=== PATIENT | female | born 1945 | race Caucasian/White ===

== ENCOUNTER 2022-06-15 15:08 | Emergency (ER) | payer MEDICARE, OTHER ==
[~2022-06-15] VITALS: Ht 167.7 cm; Wt 68.0 kg
--- NOTE | 2022-06-15 15:32 | ED General ---
General Chief Complaint: General Problems/Pain Nursing Triage Note: PT TO ROOM FS05 VIA [facility] WITH C/O BLISTERS TO RIGHT FOREARM AND RIGHT UPPER ABD. PT HAS DEMENTIA AND IS UNABLE TO ANSWER QUESTIONS. STATES THAT PT FELL YESTERDAY. STATES HE SEEN PT YESTERDAY AND THERE WERE NO BLISTERS AT THAT TIME. EMS STATES THEY WERE CALLED FOR TRANSPORT BECAUSE THE PT WOULD NOT SIT DOWN IN A W/C. Source of Information: Patient, EMS, Family, [facility] Records Exam Limitations: No Limitations History of Present Illness Date Seen by Provider: Jun 15, 2022 Time Seen by Provider: 15:10 Initial Comments 77-year-old female with past medical history of advanced dementia coming in via EMS from her senior living due to concerns for blistering on her right arm and right side of her abdomen. The patient had a low impact fall yesterday, was found on the carpet in her bedroom. This morning they noted the blistering to her right arm and right side of her abdomen with what appeared to be some scratch serna as well. She has an appointment with Dr. Bloanos tomorrow to be evaluated for this, but her wanted her to be seen today. She is new to this facility as of the past week. She has not had any new medicines, but did increase the dose of her Depakote recently. The senior living reports that they did change the detergent recently as well. The patient denies this being itchy, or painful. Per her , the patient is acting normally. I personally called the senior living and discussed the case with the patient's nurse there as well. Further elements of the history and physical were unable to be obtained from the patient given she is minimally verbal with her dementia. Her believes she has an updated tetanus shot within the past 5 years. Allergies and Home Medications Allergies Coded Allergies: No Known Drug Allergies (Unverified , 06/15/22) Patient Home Medication List Home Medication List Reviewed: Yes Review of Systems Review of Systems Constitutional: No fever EENTM: No nose congestion Respiratory: No wheezing Cardiovascular: No syncope Gastrointestinal: No vomiting Genitourinary: No decreased output Musculoskeletal: no symptoms reported Skin: see HPI Psychiatric/Neurological: Denies Seizure Hematologic/Lymphatic: No Symptoms Reported Immunological/Allergic: no symptoms reported All Other Systems Reviewed Negative Unless Noted: Yes Past Hgyroqx-Tiwkvl-Dlxuev Hx Patient Social History Tobacco Use?: No Smoking Status: Never a Smoker Smokeless Tobacco Frequency: Never a User Use of E-Cig and/or Vaping dev: No Use of E-Cig and/or Vaping Chau: Never a User Substance use?: No Alcohol Use?: No Pt feels they are or have been: No Past Medical History Surgeries: No Physical Exam Vital Signs Vital Signs - First Documented 06/15/22 15:10 Temp 36.4 Pulse 65 Resp 17 B/P (MAP) 125/65 (85) O2 Delivery Room Air Capillary Refill : Less Than 3 Seconds Height, Weight, BMI Height: '" Weight: lbs. oz. kg; 24.00 BMI Method: General Appearance: No Apparent Distress, WD/WN Eyes: Bilateral Eye Normal Inspection HEENT: PERRL/EOMI, Normal ENT Inspection, Pharynx Normal Neck: Full Range of Motion, Normal Inspection, Non Tender, Supple Respiratory: Chest Non Tender, Lungs Clear, Normal Breath Sounds, No Accessory Muscle Use, No Respiratory Distress Cardiovascular: Regular Rate, Rhythm, No Edema, Normal Peripheral Pulses Gastrointestinal: Normal Bowel Sounds, Non Tender, Soft; No Distended, No Guarding Back: Normal Inspection Extremity: Normal Capillary Refill, Normal Inspection, Normal Range of Motion, Non Tender, No Calf Tenderness, No Pedal Edema Neurologic/Psychiatric: Alert, No Motor/Sensory Deficits, Other (Moving all extremities equally) Skin: Normal Color, Warm/Dry, Other (Erythema with blistering to the right bicep area with what appears to be linear scratch excoriations, smaller area to the right side of the abdomen with smaller amount of blistering, Nikolsky negative, no mucous membrane involvement) Lymphatic: No Adenopathy Progress/Results/Core Measures Suspected Sepsis SIRS Temperature: Pulse: 65 Respiratory Rate: 17 Blood Pressure 125 /65 Mean: 85 Results/Orders Vital Signs/I&O 06/15/22 15:10 Temp 36.4 Pulse 65 Resp 17 B/P (MAP) 125/65 (85) O2 Delivery Room Air Capillary Refill : Less Than 3 Seconds Blood Pressure Mean: 85 Progress Note : Progress Note 77-year-old female with above history coming in due to blistering to her right arm and right side of her abdomen. ABCs were intact and vitals were stable on presentation. Differential includes burn versus less likely infection given the appearance versus less likely allergic in nature given it is not systemic and seems very localized to one area. I would imagine the new detergent if that is the issue, would cause more widespread problems on her skin. It was very rapid in onset, does not seem to be spreading, no fever, and given its on her arm and the right side of her abdomen, makes infection very unlikely. To me it looks like a friction burn, and this fits the story where she was laying down on what the describes as rough carpet. Pictures were taken by him, and I want her to have a follow-up appointment with her doctor tomorrow for repeat evaluation to see if it spreading. If it is spreading, infection more likely, and then at that point would recommend antibiotics. At this point would just recommend wound care. We placed nonadherent dressings on the wound. I believe she is stable for discharge with outpatient follow-up. states she is at her baseline. No other signs of trauma. She was sent home with strict return precautions. Departure Impression Primary Impression: Blistered skin Disposition: HOME, SELF-CARE Condition: Stable Departure-Patient Inst. Decision time for Depature: 15:35 Patient Instructions: Minor Skin [place] ED Add. Discharge Instructions: This appears to be a friction burn, could have been from the carpet yesterday when she was on the ground. The main thing is to just keep the wound clean. Put nonadherent dressings on it. The blisters will pop on their own. If redness starts spreading more around her arm or she develops fever call her doctor as she may need to be on antibiotics at that point. Watch the rest of her skin to see if anything else pops up as well. Follow-up with Dr. Bolanos tomorrow SANDHYA LOCKHART MD Jun 15, 2022 15:32
[2022-06-15 15:37] VITALS: BP 134/73
== END 2022-06-15 15:37 | disposition home or self-care (01) ==
LOC: ER FS 15:11
DX: S40.821A Blister (nonthermal) of right upper arm, initial encounter (principal); S30.821A Blister (nonthermal) of abdominal wall, initial encounter; W19.XXXA Unspecified fall, initial encounter
CPT/HCPCS: 99283

== ENCOUNTER 2022-07-07 10:47 | Emergency (ER) | payer MEDICARE ==
--- NOTE | 2022-07-07 11:21 | Diagnostic Imaging Report ---
INDICATION: Cough, SOA. Altered mental status. TECHNIQUE: Single view chest, 11:04 a.m. CORRELATION STUDY: None. FINDINGS: Heart size is borderline enlarged. Tortuous course of the thoracic aorta. Pulmonary vasculature is overall within normal limits. Bibasilar pulmonary opacities favoring edema versus infiltrate. Some irregular gas in the medial left lung base. However, no evidence for pneumothorax. IMPRESSION: 1. Bibasilar areas of atelectasis and/or infiltrate, left greater than right. Dictated by: Dictated on workstation # [id number]
[2022-07-07 11:27] LABS: BILIRUBIN,URINE NEGATIVE (NEGATIVE); CLARITY,URINE SL CLOUDY; COLOR,URINE YELLOW; GLUCOSE, URINE (UA) NEGATIVE (NEGATIVE); KETONES,URINE TRACE (NEGATIVE); LEUKOCYTE ESTERASE ,URINE NEGATIVE (NEGATIVE); NITRITE,URINE NEGATIVE (NEGATIVE); PROTEIN,URINE NEGATIVE (NEGATIVE)
--- NOTE | 2022-07-07 11:41 | Diagnostic Imaging Report ---
PROCEDURE: CT head without contrast. TECHNIQUE: Multiple contiguous axial images were obtained through the brain without the use of intravenous contrast. Auto Exposure Controls were utilized during the CT exam to meet ALARA standards for radiation dose reduction. INDICATION: Altered mental status. COMPARISON: None. FINDINGS: The ventricles and cortical sulci are prominent. This is thought to be due to generalized parenchymal volume loss. Ventricular prominence does appear somewhat asymmetric to the sulcal prominence, which can be seen with normal pressure hydrocephalus. There is no midline shift or mass effect. No acute intracranial hemorrhage is seen. There is no CT evidence of acute territorial ischemia. The calvarium appears intact. There is marked hyperostosis frontalis. Visualized paranasal sinuses are clear. IMPRESSION: 1. No acute intracranial hemorrhage or CT evidence of acute territorial ischemia. 2. Generalized parenchymal volume loss. Ventricular prominence appears somewhat disproportionate, and normal pressure hydrocephalus is not excluded. Dictated by: Dictated on workstation # [id number]
[2022-07-07 11:46] LABS: HEMOGLOBIN 12.9 g/dL (11.5-16.0); MEAN CORPUSCULAR HEMOGLOBIN 30 pg (25-34); WHITE BLOOD COUNT 8.2 10^3/uL (4.3-11.0)
[2022-07-07 11:47] LABS: BASOPHILS % (AUTO) 0 % (0-10); EOSINOPHILS % (AUTO) 0 % (0-10); HEMATOCRIT 38 % (35-52); LYMPHOCYTES % (AUTO) 12 % (12-44); MEAN CORPUSCULAR HGB CONC 34 g/dL (32-36); MEAN CORPUSCULAR VOLUME 89 fL (80-99); MEAN PLATELET VOLUME 10.9 fL (9.0-12.2); MONOCYTES # (AUTO) 0.4 X 10^3 (0.0-1.0); MONOCYTES % (AUTO) 5 % (0-12); NEUTROPHILS # (AUTO) 6.8 X 10^3 (1.8-7.8); NEUTROPHILS % (AUTO) 82 % (42-75); PLATELET COUNT 127 10^3/uL (130-400)
--- NOTE | 2022-07-07 11:51 | ED General ---
General Chief Complaint: Cardiac/General Problems Stated Complaint: AMS; HYPERTENSION Nursing Triage Note: PT ARRIVED BY EMS FROM [facility] WITH CHIEF COMPLAINT OF HYPERTENSION AND AMS. PT HAS HISTORY OF ALZHEIMER'S. AFTER EMS PICKED PATIENT UP AND PUT ON STRETCHER, THE PATIENT STARTED TO WAKE UP. EMS STARTED IV IN RIGHT WRIST 20 GAUGE. EMS STATED THE [facility] DID NOT GIVE THEM A MED LIST. ON ARRIVAL PT WAS DROWSY AND WILL NOT WAKE UP FROM SLEEPING UNLESS MOVING HER, PUTTING BP CUFF ON, OR STARTING IV (TO PAIN). PT WAS HOOKED UP TO THE MONITOR, VS COMPLETED, IV WAS SECURED WITH COBAN, SECOND IV ATTEMPED (GOT BLOOD BUT DC), MULTANI CATH WAS INSERTED WITH URINE OBTAINED. REPORT WAS GIVEN TO PROVIDER. Source of Information: Patient, EMS, Care Home Records Exam Limitations: Other (Dementia) History of Present Illness Date Seen by Provider: Jul 07, 2022 Time Seen by Provider: 10:48 Initial Comments This is 77-year-old woman with dementia presents to the emergency room [facility] where she was witnessed to have altered mental status. Normally she is alert and active but she was noted to be slumping at the table this morning and then again slumping and drifting off while in the shower. Blood sugar was 132 for EMS and vital signs were stable. EMS reported improving mental status since their initial evaluation. I later obtained history from family and discovered that she has had long-term severe dementia and is nonverbal. She also has history of seizures and is on medication for treatment. I eventually obtained the MAR and discovered she is on Depakote. states her current behavior is reminiscent of postictal state. No seizure activity was reported by [facility] staff. Allergies and Home Medications Allergies Coded Allergies: No Known Drug Allergies (Unverified , 06/15/22) Patient Home Medication List Home Medication List Reviewed: Yes Review of Systems Review of Systems Constitutional: no symptoms reported EENTM: no symptoms reported Respiratory: no symptoms reported Cardiovascular: no symptoms reported Gastrointestinal: no symptoms reported Genitourinary: no symptoms reported : No Musculoskeletal: no symptoms reported Skin: other (Rash on right forearm) Psychiatric/Neurological: See HPI Hematologic/Lymphatic: No Symptoms Reported Past Zhfacsq-Pmxxid-Whpljp Hx Patient Social History Tobacco Use?: No Smoking Status: Unknown if Ever Smoked Smokeless Tobacco Frequency: Unknown if Ever Used Use of E-Cig and/or Vaping Chau: Unknown if Ever Used Substance use?: Unable to obtain Alcohol Use?: Unable to obtain Pt feels they are or have been: Unable to obtain Past Medical History Surgeries: No Respiratory: No Cardiac: No Neurological: Yes Dementia, Seizure Disorder Physical Exam Vital Signs Vital Signs - First Documented 07/07/22 11:22 Temp 36.2 Pulse 77 Resp 18 B/P (MAP) 133/65 (87) Pulse Ox 97 O2 Delivery Room Air Capillary Refill : Less Than 3 Seconds Height, Weight, BMI Height: '" Weight: lbs. oz. kg; 24.00 BMI Method: General Appearance: No Apparent Distress, WD/WN, Other (Hypersomnolent) HEENT: PERRL/EOMI, Normal ENT Inspection Neck: Normal Inspection Respiratory: Lungs Clear, Normal Breath Sounds, No Accessory Muscle Use Cardiovascular: Regular Rate, Rhythm, No Edema, No Murmur Gastrointestinal: Non Tender, Soft Extremity: Normal Inspection, No Pedal Edema Neurologic/Psychiatric: No Motor/Sensory Deficits (Moves all 4 extremities and responds to pressure and touch), Other (Sometimes opens eyes and responds to voice. Patient is nonverbal at baseline. Level of alertness gradually progressed to near baseline throughout the course of ER stay. She was smiling at staff and family and active prior to discharge) Skin: Normal Color, Warm/Dry, Other (Healing blisters and erythematous rash on the right arm) Progress/Results/Core Measures Suspected Sepsis SIRS Temperature: Pulse: 77 Respiratory Rate: 18 Laboratory Tests 07/07/22 11:15: White Blood Count 8.2 Blood Pressure 133 /65 Mean: 87 Laboratory Tests 07/07/22 11:15: Creatinine 0.87, Platelet Count 127L, Total Bilirubin 0.4 Results/Orders Lab Results Laboratory Tests Test 07/07/22 11:15 07/07/22 11:20 07/07/22 13:00 Range/Units White Blood Count 8.2 4.3-11.0 10^3/uL Red Blood Count 4.23 3.80-5.11 10^6/uL Hemoglobin 12.9 11.5-16.0 g/dL Hematocrit 38 35-52 % Mean Corpuscular Volume 89 80-99 fL Mean Corpuscular Hemoglobin 30 25-34 pg Mean Corpuscular Hemoglobin Concent 34 32-36 g/dL Red Cell Distribution Width 12.6 10.0-14.5 % Platelet Count 127 L 130-400 10^3/uL Mean Platelet Volume 10.9 9.0-12.2 fL Immature Granulocyte % (Auto) 0 % Neutrophils (%) (Auto) 82 H 42-75 % Lymphocytes (%) (Auto) 12 12-44 % Monocytes (%) (Auto) 5 0-12 % Eosinophils (%) (Auto) 0 0-10 % Basophils (%) (Auto) 0 0-10 % Neutrophils # (Auto) 6.8 1.8-7.8 X 10^3 Lymphocytes # (Auto) 1.0 1.0-4.0 X 10^3 Monocytes # (Auto) 0.4 0.0-1.0 X 10^3 Eosinophils # (Auto) 0.0 0.0-0.3 10^3/uL Basophils # (Auto) 0.0 0.0-0.1 10^3/uL Immature Granulocyte # (Auto) 0.0 0.0-0.1 10^3/uL Percent Immature Platelet Fraction 5.6 0.0-7.6 % Sodium Level 143 135-145 MMOL/L Potassium Level 4.4 3.6-5.0 MMOL/L Chloride Level 107 98-107 MMOL/L Carbon Dioxide Level 27 21-32 MMOL/L Anion Gap 9 5-14 MMOL/L Blood Urea Nitrogen 27 H 7-18 MG/DL Creatinine 0.87 0.60-1.30 MG/DL Estimat Glomerular Filtration Rate 68 BUN/Creatinine Ratio 31 Glucose Level 118 H 70-105 MG/DL Calcium Level 9.2 8.5-10.1 MG/DL Corrected Calcium 9.3 8.5-10.1 MG/DL Magnesium Level 1.9 1.6-2.4 MG/DL Total Bilirubin 0.4 0.1-1.0 MG/DL Aspartate Amino Transf (AST/SGOT) 17 5-34 U/L Alanine Aminotransferase (ALT/SGPT) 6 0-55 U/L Alkaline Phosphatase 72 40-136 U/L C-Reactive Protein < 0.30 <0.50 MG/DL Total Protein 6.4 6.4-8.2 GM/DL Albumin 3.9 3.2-4.5 GM/DL Urine Color YELLOW Urine Clarity SL CLOUDY Urine pH 6.0 5-9 Urine Specific [place] >=1.030 1.016-1.022 Urine Protein NEGATIVE NEGATIVE Urine Glucose (UA) NEGATIVE NEGATIVE Urine Ketones TRACE H NEGATIVE Urine Nitrite NEGATIVE NEGATIVE Urine Bilirubin NEGATIVE NEGATIVE Urine Urobilinogen 0.2 < = 1.0 MG/DL Urine Leukocyte Esterase NEGATIVE NEGATIVE Urine RBC (Auto) NEGATIVE NEGATIVE Urine RBC NONE /HPF Urine WBC 0-2 /HPF Urine Squamous Epithelial Cells 0-2 /HPF Urine Crystals NONE /LPF Urine Bacteria TRACE /HPF Urine Casts NONE /LPF Urine Mucus SMALL H /LPF Urine Culture Indicated NO Influenza Type A (RT-PCR) Not Detected Not Detecte Influenza Type B (RT-PCR) Not Detected Not Detecte SARS-CoV-2 RNA (RT-PCR) Not Detected Not Detecte My Orders Orders - HILARIO SPRING MD Ct Head Wo (07/07/22 10:59) Ed Iv/Invasive Line Start (07/07/22 10:59) Monitor-Rhythm Ecg Trace Only (07/07/22 10:59) Cbc With Automated Diff (07/07/22 10:59) Comprehensive Metabolic Panel (07/07/22 10:59) Magnesium (07/07/22 10:59) Ua Culture If Indicated (07/07/22 10:59) Crp Fs (07/07/22 10:59) Chest 1 View Ap/Pa Only (07/07/22 10:59) Multani Cath (07/07/22 11:34) Covid 19 Inhouse Test (07/07/22 12:26) Influenza A And B By Pcr (07/07/22 12:26) Valproic Acid (07/07/22 14:30) Vital Signs/I&O 07/07/22 07/07/22 11:22 15:05 Temp 36.2 36.2 Pulse 77 75 Resp 18 18 B/P (MAP) 133/65 (87) 142/68 Pulse Ox 97 97 O2 Delivery Room Air Room Air Capillary Refill : Less Than 3 Seconds Blood Pressure Mean: 87 Progress Note : Progress Note Work-up was essentially unremarkable in the emergency room. I learned from family that she had a longstanding diagnosis of severe dementia and was n onverbal. She had previously undergone work-up with neurology at [facility]. Family and I are suspicious that she had an unwitnessed seizure at the [facility] and was experiencing a postictal state. She did gradually improve throughout the course of her ER stay. After receiving MAR by fax from the [facility], it was discovered she is on Depakote. The Depakote level was drawn and pending at the time of discharge. If Depakote level is high, she may be suffering from sedating medication effect. If Depakote level is low, perhaps she needs it adjusted or an additional medication added to prevent further seizures. Diagnostic Imaging Diagonstic Imaging: Xray Plain Films/CT/US/NM/MRI: chest Comments Chest x-ray viewed by me and report reviewed. See report below: NAME: MARLYN MANZANARES [facility] REC#: [id number] PT STATUS: REG ER : 1945 PHYSICIAN: HILARIO SPRING MD ADMIT DATE: 07/07/22/ER FS Draft Date of Exam:07/07/22 CHEST 1 VIEW AP/PA ONLY INDICATION: Cough, SOA. Altered mental status. TECHNIQUE: Single view chest, 11:04 a.m. CORRELATION STUDY: None. FINDINGS: Heart size is borderline enlarged. Tortuous course of the thoracic aorta. Pulmonary vasculature is overall within normal limits. Bibasilar pulmonary opacities favoring edema versus infiltrate. Some irregular gas in the medial left lung base. However, no evidence for pneumothorax. IMPRESSION: 1. Bibasilar areas of atelectasis and/or infiltrate, left greater than right. Dictated on workstation # [id number] Dict: 07/07/22 1117 Trans: 07/07/22 1121 [id number] Interpreted by: FILI ALCANTARA DO Diagonstic Imaging: CT Plain Films/CT/US/NM/MRI: head Comments CT head viewed by me and report reviewed. See report below: NAME: MARLYN MANZANARES [facility] REC#: [id number] PT STATUS: REG ER : 1945 PHYSICIAN: HILARIO SPRING MD ADMIT DATE: 07/07/22/ER FS Draft Date of Exam:07/07/22 CT HEAD WO PROCEDURE: CT head without contrast. TECHNIQUE: Multiple contiguous axial images were obtained through the brain without the use of intravenous contrast. Auto Exposure Controls were utilized during the CT exam to meet ALARA standards for radiation dose reduction. INDICATION: Altered mental status. COMPARISON: None. FINDINGS: The ventricles and cortical sulci are prominent. This is thought to be due to generalized parenchymal volume loss. Ventricular prominence does appear somewhat asymmetric to the sulcal prominence, which can be seen with normal pressure hydrocephalus. There is no midline shift or mass effect. No acute intracranial hemorrhage is seen. There is no CT evidence of acute territorial ischemia. The calvarium appears intact. There is marked hyperostosis frontalis. Visualized paranasal sinuses are clear. IMPRESSION: 1. No acute intracranial hemorrhage or CT evidence of acute territorial ischemia. 2. Generalized parenchymal volume loss. Ventricular prominence appears somewhat disproportionate, and normal pressure hydrocephalus is not excluded. Dictated on workstation # [id number] Dict: 07/07/22 1137 Trans: 07/07/22 1141 [id number] Interpreted by: LOIDA TYLER MD Departure Impression Primary Impression: Altered mental status Qualified Codes: R41.82 - Altered mental status, unspecified Additional Impression: Seizure disorder Disposition: HOME, SELF-CARE Condition: Improved Departure-Patient Inst. Decision time for Depature: 14:43 Referrals: DRU WHITNEY MD (PCP) Primary Care Physician Patient Instructions: Seizures Add. Discharge Instructions: The exact cause of altered mental status is uncertain, but it may have been caused by an unwitnessed seizure resulting in postictal state. A Depakote (valproic acid) level is being processed by the [facility] [facility]. This should be available by end of day July 07. This lab can be reviewed by the primary care team and adjustments to medications can be made based on that. If the valproic acid level is appropriate and she is having breakthrough seizures, an additional medication such as Keppra could be added. Follow-up with the primary care provider soon as possible. Return to the ER if there are worsening symptoms. All discharge instructions reviewed with patient and/or family. Voiced understanding. Copy Copies To 1: DRU WHITNEY MD, JOSHUA T MD Jul 07, 2022 11:51
[2022-07-07 11:55] LABS: BACTERIA,URINE TRACE /HPF; SQUAMOUS EPITHELIAL CELL,UR 0-2 /HPF; WBC,URINE 0-2 /HPF
[2022-07-07 12:09] LABS: CHLORIDE 107 MMOL/L (98-107); POTASSIUM 4.4 MMOL/L (3.6-5.0); SODIUM 143 MMOL/L (135-145)
[2022-07-07 12:10] LABS: ALKALINE PHOSPHATASE 72 U/L (40-136); BILIRUBIN,TOTAL 0.4 MG/DL (0.1-1.0); BUN/CREATININE RATIO 31; CALCIUM 9.2 MG/DL (8.5-10.1); CARBON DIOXIDE 27 MMOL/L (21-32); CREATININE SERUM 0.87 MG/DL (0.60-1.30); GFR ESTIMATED 68; GLUCOSE 118 MG/DL (70-105); MAGNESIUM 1.9 MG/DL (1.6-2.4)
[2022-07-07 12:11] LABS: ALANINE AMINOTRANSFERASE 6 U/L (0-55); ALBUMIN 3.9 GM/DL (3.2-4.5); TOTAL PROTEIN 6.4 GM/DL (6.4-8.2)
[2022-07-07 15:05] VITALS: BP 142/68
== END 2022-07-07 15:06 | disposition home or self-care (01) ==
LOC: EDUNIT# 10:47 → ER FS 10:48
DX: R41.82 Altered mental status, unspecified (principal); G40.909 Epilepsy, unspecified, not intractable, without status epilepticus; Z20.822 Contact with and (suspected) exposure to COVID-19
CPT/HCPCS: 36415; 51702; 70450; 71045; 80053; 80164; 81000; 83735; 85025; 86141; 87636; 93041

== ENCOUNTER 2022-09-16 15:14 | Emergency (ER) | payer MEDICARE ==
--- NOTE | 2022-09-16 15:24 | ED Neurological Problem ---
History of Present Illness Date Seen by Provider: Sep 16, 2022 Time Seen by Provider: 15:19 Initial Comments 77-year-old female who is DNR, non-verbal at baseline, with PMH of Alzheimer's dementia/seizures, is brought in by EMS from the rehab center, with complaints of exacerbated confusion and altered mental status, with slumping to the right side which began around 1300 today, as per . Patient's reports that patient is nonverbal at baseline however she is able to recognize him and smile at him and acknowledgment, and she is unable to do that at this time. Patient uses a walker at baseline and she was having difficulty walking and needed assistance after this occurred. Denies seizure, fever, cough, shortness of breath, chest pain, abdominal pain, diarrhea. Patient has never had a heart attack or stroke in the past. Patient was here in June 2022 with similar complaints and her symptoms resolved prior to being discharged from the ER, and likely had a seizure at that time. pT'S THINKS SHE HAD A SEIZURE BECAUSE THIS IS HER USUAL PATTERN AFTER A SEIZURE, AND SHE USUALLY IMPROVES AFTER A COUPLE OF HOURS Allergies and Home Medications Allergies Coded Allergies: No Known Drug Allergies (Unverified , 06/15/22) Patient Home Medication List Home Medication List Reviewed: Yes Review of Systems Review of Systems Constitutional: no symptoms reported Eyes: See HPI Ears, Nose, Mouth, Throat: no symptoms reported Respiratory: no symptoms reported Cardiovascular: no symptoms reported Gastrointestinal: no symptoms reported Genitourinary: no symptoms reported Musculoskeletal: no symptoms reported Skin: no symptoms reported Psychiatric/Neurological: Weakness Endocrine: No Symptoms Reported Hematologic/Lymphatic: No Symptoms Reported Past Eqhwpbu-Xsgzec-Rmxshl Hx Past Medical History Surgeries: No Respiratory: No Cardiac: No Neurological: Yes Dementia, Seizure Disorder Physical Exam Vital Signs Vital Signs - First Documented 09/16/22 15:14 Temp 36.1 Pulse 100 Resp 14 B/P (MAP) 134/90 (105) Pulse Ox 95 O2 Delivery Room Air Capillary Refill : Height, Weight, BMI Height: '" Weight: lbs. oz. kg; 24.00 BMI Method: General Appearance: no apparent distress, other (confused, aphasia, but difficult to assess based on non-verbal baseline.) HEENT: normal ENT inspection Neck: non-tender, full range of motion Respiratory: lungs clear Cardiovascular: regular rate, rhythm Gastrointestinal: normal bowel sounds, non tender, soft Back: normal inspection Neurologic/Psychiatric: alert, abnormal gait, aphasia, other (cannot answer questions but she is able to squeeze hands when asked and mumbles something illegible when asked her name.) Crainal Nerves: abnormal speech Coordination/Gait: other (unable to follow commands) Motor/Sensory: weak motor strength LLE Reflexes: 3+ Bicep (R), 3+ Bicep (L), 3+ Tricep (R), 3+ Tricep (L), 3+ Knee (R), 3+ Knee (L), 3+ Ankle (R), 3+ Ankle (L) Skin: normal color, warm/dry Stroke Onset of Symptoms Date of Onset of Symptoms: Sep 16, 2022 Time of Symptom Onset: 13:00 NIH Stroke Scale Assessment Select: Initial Level of Consciousness: 0=Alert (0), Level of Consciousness- Questions: 2=Answer neither question (2), LOC Commands: 0=Performs both tasks (0), Gaze: Normal (0), Motor Function-Arms Right: 2=Some effort/gravity (2), Motor Function-Arms Left: 2=Some effort/gravity (2), Motor Function-Legs Right: 3=No effort/gravity (3), Motor Function-Legs Left: 3=No effort/gravity (3), Limb Ataxia: 2=Present in two limbs (2), Sensory: 0=Normal:no loss (0), Best Language: 2=Severe aphasia (2), Dysarthria: 3=Intubated/Physical kaufman (3), Extinction & Inattention: 1=Visual,tactile,auditory (1), Total: 20 Stroke Thrombolytic Exclusion Age 18 or Over: Yes Acute intenal hemorrhage: No History of CVA: No Uncontrolled Coagulation Defec: No Intracranial Hemorrhage: No Severe Hypertension: No GI or Bleed: No Subarachnoid Hemorrhage: No Intracranial Neoplasm/Aneurysm: No Oral Anticoagulants: No Surgery or Trauma: No Puncture of Non-Compressible V: No Recent CPR: No Diabetic Hemorrhagic Retinopat: No Organ Biopsy: No Recent Obstetric Delivery: No Glucose: No Significant Hepatic Dysfunctio: No Bacterial Endocarditis: No Pericarditis: No Progress/Results/Core Measures Results/Orders Lab Results Laboratory Tests Test 09/16/22 15:24 09/16/22 15:48 Range/Units White Blood Count 8.1 4.3-11.0 10^3/uL Red Blood Count 4.23 3.80-5.11 10^6/uL Hemoglobin 12.7 11.5-16.0 g/dL Hematocrit 38 35-52 % Mean Corpuscular Volume 91 80-99 fL Mean Corpuscular Hemoglobin 30 25-34 pg Mean Corpuscular Hemoglobin Concent 33 32-36 g/dL Red Cell Distribution Width 12.7 10.0-14.5 % Platelet Count 108 L 130-400 10^3/uL Mean Platelet Volume 9.2 9.0-12.2 fL Immature Granulocyte % (Auto) 0 % Neutrophils (%) (Auto) 82 H 42-75 % Lymphocytes (%) (Auto) 8 L 12-44 % Monocytes (%) (Auto) 8 0-12 % Eosinophils (%) (Auto) 1 0-10 % Basophils (%) (Auto) 0 0-10 % Neutrophils # (Auto) 6.7 1.8-7.8 10^3/uL Lymphocytes # (Auto) 0.7 L 1.0-4.0 10^3/uL Monocytes # (Auto) 0.7 0.0-1.0 10^3/uL Eosinophils # (Auto) 0.1 0.0-0.3 10^3/uL Basophils # (Auto) 0.0 0.0-0.1 10^3/uL Immature Granulocyte # (Auto) 0.0 0.0-0.1 10^3/uL Neutrophils % (Manual) 80 % Lymphocytes % (Manual) 15 % Monocytes % (Manual) 4 % Eosinophils % (Manual) 1 % Percent Immature Platelet Fraction 1.5 0.0-7.6 % Prothrombin Time 12.8 12.2-14.7 SEC INR Comment 0.9 0.8-1.4 Activated Partial Thromboplast Time 28 24-35 SEC D-Dimer 0.41 0.00-0.49 UG/ML Sodium Level 139 135-145 MMOL/L Potassium Level 4.2 3.6-5.0 MMOL/L Chloride Level 102 98-107 MMOL/L Carbon Dioxide Level 25 21-32 MMOL/L Anion Gap 12 5-14 MMOL/L Blood Urea Nitrogen 18 7-18 MG/DL Creatinine 0.77 0.60-1.30 MG/DL Estimat Glomerular Filtration Rate 79 BUN/Creatinine Ratio 23 Glucose Level 135 H 70-105 MG/DL Calcium Level 8.8 8.5-10.1 MG/DL Corrected Calcium 8.8 8.5-10.1 MG/DL Magnesium Level 1.6 1.6-2.4 MG/DL Total Bilirubin 0.3 0.1-1.0 MG/DL Aspartate Amino Transf (AST/SGOT) 16 5-34 U/L Alanine Aminotransferase (ALT/SGPT) 9 0-55 U/L Alkaline Phosphatase 76 40-136 U/L Troponin I < 0.30 <0.30 NG/ML Total Protein 6.1 L 6.4-8.2 GM/DL Albumin 4.0 3.2-4.5 GM/DL Thyroid Stimulating Hormone (TSH) 0.82 0.35-4.94 UIU/ML TSH Haakon Testing 0.82 0.35-4.94 UIU/ML Valproic Acid (Depakene) Level 35.2 L 50.0-100.0 UG/ML Urine Color YELLOW Urine Clarity CLEAR Urine pH 7.5 5-9 Urine Specific [place] 1.020 1.016-1.022 Urine Protein NEGATIVE NEGATIVE Urine Glucose (UA) NEGATIVE NEGATIVE Urine Ketones NEGATIVE NEGATIVE Urine Nitrite NEGATIVE NEGATIVE Urine Bilirubin NEGATIVE NEGATIVE Urine Urobilinogen 1.0 < = 1.0 MG/DL Urine Leukocyte Esterase NEGATIVE NEGATIVE Urine RBC (Auto) TRACE-I H NEGATIVE Urine RBC 2-5 H /HPF Urine WBC NONE /HPF Urine Crystals NONE /LPF Urine Bacteria TRACE /HPF Urine Casts NONE /LPF Urine Mucus MODERATE H /LPF Urine Culture Indicated NO My Orders Orders - MILTON ALMARAZ MD Ct Head Wo-R/O Stroke (09/16/22 15:24) Cbc With Automated Diff (09/16/22 15:25) Protime With Inr (09/16/22 15:25) Partial Thromboplastin Time (09/16/22 15:25) Comprehensive Metabolic Panel (09/16/22 15:25) Fibrin Degradation Products (09/16/22 15:25) Troponin I Fs (09/16/22 15:25) Ua Culture If Indicated (09/16/22 15:25) Chest 1 View Ap/Pa Only (09/16/22 15:25) Catheter(Urinary) Insert & Ass 03,15 (09/16/22 15:25) Ekg Tracing (09/16/22 15:25) Nothing By Mouth (09/16/22 Dinner) Accucheck Stat ONCE (09/16/22 15:25) Ed Iv/Invasive Line Start (09/16/22 15:25) Ed Iv/Invasive Line Start (09/16/22 15:25) Vital Signs Stroke Patient Q15M (09/16/22 15:25) O2 (09/16/22 15:25) Intake & Output 06,14,22 (09/16/22 15:25) Monitor-Rhythm Ecg Trace Only (09/16/22 15:25) Dysphagia Screening Tool Q10MX1 (09/16/22 15:25) Lipid Panel (09/17/22 06:00) Lidocaine 2% (Urojet) (Xylocaine Urojet) (09/16/22 15:30) Manual Differential (09/16/22 15:24) Thyroid Analyzer (09/16/22 15:30) Thyroid Stimulating Hormone (09/16/22 15:30) Valproic Acid (09/16/22 15:34) Magnesium (09/16/22 15:24) Ct Angio Head/Neck (09/16/22 16:27) Iohexol Injection (Omnipaque 350 Mg/Ml 1 (09/16/22 16:45) Received Contrast (Hold Metformin- Contr (09/16/22 16:45) Ns (Ivpb) (Sodium Chloride 0.9% Ivpb Bag (09/16/22 16:45) Keppra 1000mg (Q12hr) (09/16/22 19:38) Medications Given in ED Current Medications Medications Dose Ordered Sig/Maria E Route Start Time Stop Time Status Last Admin Dose Admin Iohexol 100 ml ONCE ONCE IV 09/16/22 16:45 09/16/22 16:46 DC 09/16/22 16:56 75 ML Sodium Chloride 100 ml ONCE ONCE IV 09/16/22 16:45 09/16/22 16:46 DC 09/16/22 16:55 100 ML Vital Signs/I&O 09/16/22 09/16/22 15:14 15:14 Temp 36.1 Pulse 100 Resp 14 B/P (MAP) 134/90 (105) Pulse Ox 95 O2 Delivery Room Air Room Air Progress Progress Note : Progress Note 1. STROKE RULE OUT: SEIZURE - CT HEAD: no acute changes - CTA HEAD & NECK: CTA [place] demonstrates atherosclerotic intracranial changes, most pronounced along the posterior cerebral arteries, left greater than right. This does result in areas of significant attenuation and some narrowing. Definitive large vessel occlusion is not suggested. - CXR: unremarkable - CBC/ CMP: WBC normal - UA: NO INFECTION - Coag panel: unremarkable - Vitals stable in ER including BP - Pt is DNR -Patient likely had a seizure as she is much improved after being in the ER for a couple of hours. Patient appears more alert and is able to recognize her . Patient's Depakote levels are very low in the 30s, and we do not have Depakote in the ER at [place]. I will give a loading dose of Keppra at 1000 mg IV and discharge her back to the rehab center. -Patient is to follow-up with her PCP on Sunday for seizure medication dosages adjustment. -Recommendation given to to have palliative care involvement for patient's care -Return to ER if symptoms do not improve or worsen Initial ECG Impression Date: Sep 16, 2022 Initial ECG Impression Time: 15:28 Initial ECG Rate: 92 Initial ECG Rhythm: Normal Sinus Initial ECG Intervals: NV (Short NV interval) Initial ECG Impression: Nonspecific Changes Diagnostic Imaging Diagonstic Imaging: Xray, CT Plain Films/CT/US/NM/MRI: chest, head Comments [facility], [place] NAME: MARLYN MANZANARES [facility] REC#: [id number] PT STATUS: REG ER : 1945 PHYSICIAN: MILTON ALMARAZ MD ADMIT DATE: 09/16/22/ER FS Draft Date of Exam:09/16/22 CT ANGIO HEAD/NECK PROCEDURE: CT angiography of the head and CT angiography of the neck with and without contrast. TECHNIQUE: Contiguous noncontrast images were obtained from the skull base through the vertex. After intravenous contrast administration, helical CT angiography of the neck was performed. Source data was reformatted into 3D MIP projections. Delayed post contrast acquisition was also obtained. Auto Exposure Controls were utilized during the CT exam to meet ALARA standards for radiation dose reduction. INDICATION: 77-year-old female, altered mental status. COMPARISON: None. FINDINGS: CTA NECK: Aorta: Aortic arch is limited in evaluation with artifact present. Does appear relatively normal, with standard three vessel branching pattern. Right Common/Internal/External Carotid Artery: Patent and without significant stenosis. Left Common/Internal/External Carotid Artery: Patent and without significant stenosis. Vertebral arteries: Very slightly dominant left vertebral artery. There is tortuous course of the vertebral arteries but are patent to the skull base with both vertebral arteries terminating into the basilar artery. Distal right vertebral artery becomes somewhat string-like. Non-vascular: Emphysematous changes about the lung apices. Airway is patent. Extensive metallic artifact from dental orthodoxy. CTA HEAD: Anterior Circulation: Scattered atherosclerotic plaque of the internal carotid arteries. High degree stenosis does not appear to be suggested. Scattered atherosclerotic changes with minimal areas of narrowing at the bilateral middle cerebral arteries. Large vessel occlusion however is not suggested. Right A1 segment remainder of the anterior cerebral artery is markedly hypoplastic essentially only a single dominant left anterior cerebral artery. Posterior Circulation: Small caliber string-like distal right vertebral artery. Basilar artery has what appears to be a small area of fenestration. Right posterior cerebral artery is largely supplied via the posterior communicating artery. The posterior cerebral arteries demonstrate areas of attenuation, left greater than right. Likely largely atherosclerotic. Post Contrast Head: No concerning enhancement on delayed post-contrast imaging. IMPRESSION: 1. CTA [place] demonstrates atherosclerotic intracranial changes, most pronounced along the posterior cerebral arteries, left greater than right. This does result in areas of significant attenuation and some narrowing. Definitive large vessel occlusion is not suggested. 2. Negative CTA of the neck. Dictated on workstation # [id number] Dict: 09/16/22 1749 Trans: 09/16/22 1805 [facility] [id number] Interpreted by: FILI ALCANTARA DO Electronically signed by: [facility] [place] NAME: MARLYN MANZANARES [facility] REC#: [id number] PT STATUS: REG ER : 1945 PHYSICIAN: MILTON ALMARAZ MD ADMIT DATE: 09/16/22/ER FS Signed Date of Exam:09/16/22 CHEST 1 VIEW AP/PA ONLY INDICATION: Dysphasia. FINDINGS: The lungs are clear given bilateral breast implant shadowing. There is tortuosity of the atherosclerotic thoracic aorta, stable in appearance from priors. No infiltrate, effusion or pneumothorax. IMPRESSION: No acute appearing abnormality. Dictated by: Dictated on workstation # [id number] Dict: 09/16/22 1555 Trans: 09/16/22 1601 [facility] [id number] Interpreted by: NELLA LORENZANA Electronically signed by: NELLA LORENZANA 09/16/22 160 [facility] [place] NAME: MARLYN MANZANARES [facility] REC#: [id number] PT STATUS: REG ER : 1945 PHYSICIAN: MILTON ALMARAZ MD ADMIT DATE: 09/16/22/ER FS Signed Date of Exam:09/16/22 CT HEAD WO-R/O STROKE PROCEDURE: CT head wo r/o stroke. TECHNIQUE: Multiple contiguous axial images were obtained through the brain without the use of intravenous contrast. Auto Exposure Controls were utilized during the CT exam to meet ALARA standards for radiation dose reduction. INDICATION: Neurological changes. Evaluate for stroke. COMPARISON: CT head 07/07/2022. FINDINGS: There is stable volume loss and associated ventriculomegaly. There is no finding of acute hemorrhage. There is no intracranial mass effect or shift. There is no extra-axial collection There is no CT finding of territorial loss of [place]-white differentiation or low density in the basal ganglia or [place]. There is no finding of edema. Mastoid air cells are clear. The visualized paranasal sinuses are clear. There is calvarial hyperostosis. There is no acute calvarial abnormality. IMPRESSION: Stable CT appearance of the head. There is age-related volume loss and ventriculomegaly. There is no new loss of rivera-white differentiation or finding of edema. There is no evidence of hemorrhage. Dictated by: Dictated on workstation # [id number] Dict: 09/16/22 1542 Trans: 09/16/22 1606 [facility] [id number] Interpreted by: COLIN MOLINA MD Electronically signed by: COLIN MOLINA MD 09/16/22 1606 Departure Impression Primary Impression: Seizure disorder Disposition: 01 HOME, SELF-CARE Condition: Improved Departure-Patient Inst. Referrals: SELF,DRU JEFFERSON (PCP/Family) Primary Care Physician Patient Instructions: Seizures, Epilepsy in Adults Add. Discharge Instructions: Patient's Depakote levels are very low in the 30s, and we do not have Depakote in the ER at [place]. Keppra loading dose given -Patient is to follow-up with her PCP on Sunday for seizure medication dosage adjustment. -Recommendation given to to have palliative care involvement for patient's care -Return to ER if symptoms do not improve or worsen MILTON ALMARAZ MD Sep 16, 2022 15:24
[2022-09-16 15:30] LABS: BASOPHILS % (AUTO) 0 % (0-10); EOSINOPHILS # (AUTO) 0.1 10^3/uL (0.0-0.3); EOSINOPHILS % (AUTO) 1 % (0-10); HEMATOCRIT 38 % (35-52); HEMOGLOBIN 12.7 g/dL (11.5-16.0); LYMPHOCYTES # (AUTO) 0.7 10^3/uL (1.0-4.0); LYMPHOCYTES % (AUTO) 8 % (12-44); MEAN CORPUSCULAR HEMOGLOBIN 30 pg (25-34); MEAN CORPUSCULAR HGB CONC 33 g/dL (32-36); MEAN CORPUSCULAR VOLUME 91 fL (80-99); MEAN PLATELET VOLUME 9.2 fL (9.0-12.2); MONOCYTES # (AUTO) 0.7 10^3/uL (0.0-1.0); MONOCYTES % (AUTO) 8 % (0-12); NEUTROPHILS # (AUTO) 6.7 10^3/uL (1.8-7.8); NEUTROPHILS % (AUTO) 82 % (42-75); PLATELET COUNT 108 10^3/uL (130-400); WHITE BLOOD COUNT 8.1 10^3/uL (4.3-11.0)
[2022-09-16] MEDS ORDERED: LIDOCAINE UROJET 2% GEL 10 ML PKG TOP ONE (15:30)
[2022-09-16 15:45] LABS: INR 0.9 (0.8-1.4); PROTHROMBIN TIME PATIENT 12.8 SEC (12.2-14.7)
[2022-09-16 15:48] LABS: FIBRIN DEGRADATION PRODUCTS 0.41 UG/ML (0.00-0.49)
[2022-09-16 15:49] LABS: BUN/CREATININE RATIO 23; CARBON DIOXIDE 25 MMOL/L (21-32); CHLORIDE 102 MMOL/L (98-107); CREATININE SERUM 0.77 MG/DL (0.60-1.30); GFR ESTIMATED 79; POTASSIUM 4.2 MMOL/L (3.6-5.0); SODIUM 139 MMOL/L (135-145)
--- NOTE | 2022-09-16 15:49 | Diagnostic Imaging Report ---
PROCEDURE: CT head wo r/o stroke. TECHNIQUE: Multiple contiguous axial images were obtained through the brain without the use of intravenous contrast. Auto Exposure Controls were utilized during the CT exam to meet ALARA standards for radiation dose reduction. INDICATION: Neurological changes. Evaluate for stroke. COMPARISON: CT head 07/07/2022. FINDINGS: There is stable volume loss and associated ventriculomegaly. There is no finding of acute hemorrhage. There is no intracranial mass effect or shift. There is no extra-axial collection There is no CT finding of territorial loss of rivera-white differentiation or low density in the basal ganglia or [place]. There is no finding of edema. Mastoid air cells are clear. The visualized paranasal sinuses are clear. There is calvarial hyperostosis. There is no acute calvarial abnormality. IMPRESSION: Stable CT appearance of the head. There is age-related volume loss and ventriculomegaly. There is no new loss of rivera-white differentiation or finding of edema. There is no evidence of hemorrhage. Dictated by: Dictated on workstation # [id number]
[2022-09-16 15:50] LABS: ALANINE AMINOTRANSFERASE 9 U/L (0-55); ALKALINE PHOSPHATASE 76 U/L (40-136); BILIRUBIN,TOTAL 0.3 MG/DL (0.1-1.0); CALCIUM 8.8 MG/DL (8.5-10.1); GLUCOSE 135 MG/DL (70-105); TOTAL PROTEIN 6.1 GM/DL (6.4-8.2)
[2022-09-16 15:54] LABS: BILIRUBIN,URINE NEGATIVE (NEGATIVE); CLARITY,URINE CLEAR; COLOR,URINE YELLOW; GLUCOSE, URINE (UA) NEGATIVE (NEGATIVE); KETONES,URINE NEGATIVE (NEGATIVE); LEUKOCYTE ESTERASE ,URINE NEGATIVE (NEGATIVE); NITRITE,URINE NEGATIVE (NEGATIVE); PH,URINE 7.5 (5-9); PROTEIN,URINE NEGATIVE (NEGATIVE)
[2022-09-16 15:55] LABS: BACTERIA,URINE TRACE /HPF
--- NOTE | 2022-09-16 15:59 | Diagnostic Imaging Report ---
INDICATION: Dysphasia. FINDINGS: The lungs are clear given bilateral breast implant shadowing. There is tortuosity of the atherosclerotic thoracic aorta, stable in appearance from priors. No infiltrate, effusion or pneumothorax. IMPRESSION: No acute appearing abnormality. Dictated by: Dictated on workstation # [id number]
[2022-09-16 16:21] LABS: EOSINOPHILS % (MANUAL) 1 %; LYMPHOCYTES % (MANUAL) 15 %; MONOCYTES % (MANUAL) 4 %; NEUTROPHILS % (MANUAL) 80 %
[2022-09-16] MEDS ORDERED: NS 100 ML (IVPB) BAG IV ONE (16:45)
[2022-09-16] MEDS ORDERED: IOHEXOL 350 MG/ML 100 ML (OMNIPAQUE 350) VIAL IV ONE (16:45)
[2022-09-16] MEDS ORDERED: HOLD METFORMIN - RECEIVED CONTRAST 20 ML VIAL IV SCH (16:45)
[2022-09-16 17:40] LABS: VALPROIC ACID 35.2 UG/ML (50.0-100.0)
[2022-09-16 17:53] LABS: TSH (THYROID ANALYZER) 0.82 UIU/ML (0.35-4.94)
--- NOTE | 2022-09-16 18:06 | Diagnostic Imaging Report ---
PROCEDURE: CT angiography of the head and CT angiography of the neck with and without contrast. TECHNIQUE: Contiguous noncontrast images were obtained from the skull base through the vertex. After intravenous contrast administration, helical CT angiography of the neck was performed. Source data was reformatted into 3D MIP projections. Delayed post contrast acquisition was also obtained. Auto Exposure Controls were utilized during the CT exam to meet ALARA standards for radiation dose reduction. INDICATION: 77-year-old female, altered mental status. COMPARISON: None. FINDINGS: CTA NECK: Aorta: Aortic arch is limited in evaluation with artifact present. Does appear relatively normal, with standard three vessel branching pattern. Right Common/Internal/External Carotid Artery: Patent and without significant stenosis. Left Common/Internal/External Carotid Artery: Patent and without significant stenosis. Vertebral arteries: Very slightly dominant left vertebral artery. There is tortuous course of the vertebral arteries but are patent to the skull base with both vertebral arteries terminating into the basilar artery. Distal right vertebral artery becomes somewhat string-like. Non-vascular: Emphysematous changes about the lung apices. Airway is patent. Extensive metallic artifact from dental catholic. CTA HEAD: Anterior Circulation: Scattered atherosclerotic plaque of the internal carotid arteries. High degree stenosis does not appear to be suggested. Scattered atherosclerotic changes with minimal areas of narrowing at the bilateral middle cerebral arteries. Large vessel occlusion however is not suggested. Right A1 segment remainder of the anterior cerebral artery is markedly hypoplastic essentially only a single dominant left anterior cerebral artery. Posterior Circulation: Small caliber string-like distal right vertebral artery. Basilar artery has what appears to be a small area of fenestration. Right posterior cerebral artery is largely supplied via the posterior communicating artery. The posterior cerebral arteries demonstrate areas of attenuation, left greater than right. Likely largely atherosclerotic. Post Contrast Head: No concerning enhancement on delayed post-contrast imaging. IMPRESSION: 1. CTA [place] demonstrates atherosclerotic intracranial changes, most pronounced along the posterior cerebral arteries, left greater than right. This does result in areas of significant attenuation and some narrowing. Definitive large vessel occlusion is not suggested. 2. Negative CTA of the neck. Dictated by: Dictated on workstation # [id number]
[2022-09-16 20:04] VITALS: BP 126/86
== END 2022-09-16 20:17 | disposition home or self-care (01) ==
LOC: EDUNIT# 15:14 → ER FS 15:16
DX: G40.909 Epilepsy, unspecified, not intractable, without status epilepticus (principal)
CPT/HCPCS: 36415; 51702; 70450; 70496; 70498; 71045; 80053; 80164; 81000; 83735; 84443; 84484; 85007; 85027; 85379; 85610; 85730; 93005; 93041

== ENCOUNTER 2022-10-09 13:38 | Emergency (ER) | payer MEDICARE ==
--- NOTE | 2022-10-09 14:00 | ED General ---
General Stated Complaint: SEIZURE LIKE ACTIVITY Source of Information: Patient Exam Limitations: No Limitations History of Present Illness Date Seen by Provider: Oct 09, 2022 Time Seen by Provider: 13:45 Initial Comments Patient is a 77-year-old female with history of Alzheimer's dementia who presents with change in mental status. Patient was sitting eating lunch and then put her head down table with her eyes closed. Blood sugar was checked which was normal. Reportedly, she had a systolic blood pressure of 68. There is no witnessed seizure activity. No new medications missed medications. No recent illnesses. Additional history was provided by the patient's who is present. History limited by dementia. Timing/Duration: 1/2 Hour Severity: Mild Modifying Factors: improves with Other Associated Systoms: Other Allergies and Home Medications Allergies Coded Allergies: No Known Drug Allergies (Unverified , 06/15/22) Patient Home Medication List Home Medication List Reviewed: Yes Review of Systems Review of Systems Constitutional: see HPI EENTM: see HPI Respiratory: see HPI Cardiovascular: see HPI Gastrointestinal: see HPI Genitourinary: see HPI : No Musculoskeletal: see HPI Skin: see HPI Psychiatric/Neurological: See HPI Hematologic/Lymphatic: See HPI Immunological/Allergic: see HPI All Other Systems Reviewed Negative Unless Noted: No Past Doozmqe-Bdkydj-Vwebrl Hx Patient Social History Tobacco Use?: No Past Medical History Surgeries: No Respiratory: No Cardiac: No Neurological: Yes Dementia, Seizure Disorder Physical Exam Vital Signs Vital Signs - First Documented 10/09/22 14:35 Pulse 77 Resp 18 B/P (MAP) 139/76 (97) Pulse Ox 96 O2 Delivery Room Air Capillary Refill : Height, Weight, BMI Height: '" Weight: lbs. oz. kg; 24.00 BMI Method: General Appearance: Other (Somnolent, awakes to tactile and verbal stimulation) Eyes: Bilateral Eye Normal Inspection, Bilateral Eye PERRL, Bilateral Eye EOMI HEENT: TMs Normal, Moist Mucous Membranes Respiratory: Lungs Clear Cardiovascular: Regular Rate, Rhythm, No Edema Gastrointestinal: Non Tender, Soft Extremity: Non Tender Neurologic/Psychiatric: Alert, No Motor/Sensory Deficits Skin: Normal Color Lymphatic: Other Focused Exam Sepsis Stage: Ruled Out Progress/Results/Core Measures Suspected Sepsis SIRS Temperature: Pulse: Respiratory Rate: Laboratory Tests 10/09/22 13:50: White Blood Count 5.3 Blood Pressure / Mean: Laboratory Tests 10/09/22 13:50: Creatinine 0.87, Platelet Count 135, Total Bilirubin 0.3 Results/Orders Lab Results Laboratory Tests Test 10/09/22 13:50 10/09/22 14:06 Range/Units White Blood Count 5.3 4.3-11.0 10^3/uL Red Blood Count 4.04 3.80-5.11 10^6/uL Hemoglobin 12.6 11.5-16.0 g/dL Hematocrit 37 35-52 % Mean Corpuscular Volume 91 80-99 fL Mean Corpuscular Hemoglobin 31 25-34 pg Mean Corpuscular Hemoglobin Concent 34 32-36 g/dL Red Cell Distribution Width 12.7 10.0-14.5 % Platelet Count 135 130-400 10^3/uL Mean Platelet Volume 9.5 9.0-12.2 fL Immature Granulocyte % (Auto) 0 % Neutrophils (%) (Auto) 56 42-75 % Lymphocytes (%) (Auto) 31 12-44 % Monocytes (%) (Auto) 9 0-12 % Eosinophils (%) (Auto) 3 0-10 % Basophils (%) (Auto) 1 0-10 % Neutrophils # (Auto) 3.0 1.8-7.8 X 10^3 Lymphocytes # (Auto) 1.6 1.0-4.0 X 10^3 Monocytes # (Auto) 0.5 0.0-1.0 X 10^3 Eosinophils # (Auto) 0.2 0.0-0.3 10^3/uL Basophils # (Auto) 0.0 0.0-0.1 10^3/uL Immature Granulocyte # (Auto) 0.0 0.0-0.1 10^3/uL Sodium Level 139 135-145 MMOL/L Potassium Level 4.2 3.6-5.0 MMOL/L Chloride Level 104 98-107 MMOL/L Carbon Dioxide Level 23 21-32 MMOL/L Anion Gap 12 5-14 MMOL/L Blood Urea Nitrogen 23 H 7-18 MG/DL Creatinine 0.87 0.60-1.30 MG/DL Estimat Glomerular Filtration Rate 68 BUN/Creatinine Ratio 26 Glucose Level 168 H 70-105 MG/DL Calcium Level 8.6 8.5-10.1 MG/DL Corrected Calcium 8.9 8.5-10.1 MG/DL Total Bilirubin 0.3 0.1-1.0 MG/DL Aspartate Amino Transf (AST/SGOT) 16 5-34 U/L Alanine Aminotransferase (ALT/SGPT) 9 0-55 U/L Alkaline Phosphatase 67 40-136 U/L Troponin I < 0.30 <0.30 NG/ML Total Protein 5.8 L 6.4-8.2 GM/DL Albumin 3.6 3.2-4.5 GM/DL My Orders Orders - YVONNE MAN DO Cbc With Automated Diff (10/09/22 13:43) Comprehensive Metabolic Panel (10/09/22 13:43) Ekg Tracing (10/09/22 13:43) Ua Culture If Indicated (10/09/22 13:43) Valproic Acid (10/09/22 13:43) Chest 1 View Ap/Pa Only (10/09/22 13:43) Troponin I Fs (10/09/22 13:43) Vital Signs/I&O 10/09/22 14:35 Pulse 77 Resp 18 B/P (MAP) 139/76 (97) Pulse Ox 96 O2 Delivery Room Air Capillary Refill : Departure Communication (Admissions) Chest x-ray: No acute cardiopulmonary disease EKG: Normal sinus rhythm. Patient more bright eyed and alert during ED stay. Is unclear if the patient is overly medicated had a preseizure aura, or was simply sleeping. In any event, the patient is cooperative with exam does not exhibit any neurologic deficits. Lab work is reassuring. Single dose of Depakote given prior to discharge. Patient's requested return patient to the residential by POC. Return precautions reviewed. Patient's spouse verbalizes understanding agreement discharge instruction prior to departure. Impression Primary Impression: Altered mental status Additional Impression: Dementia Disposition: 01 HOME, SELF-CARE Condition: Stable Departure-Patient Inst. Decision time for Depature: 15:30 Referrals: DRU WHITNEY MD (PCP/Family) Primary Care Physician Patient Instructions: Dementia ED Add. Discharge Instructions: Shwetha was evaluated in the emergency department for change in mental status. The cause of her symptoms has not been determined but may be related to a seizure, low blood sugar, heart arrhythmia, medication effect, sleep deprivation or other undiagnosed cause. Please perform neurochecks every 4 hours for the next 24 hours and follow-up with her PCP or residential attending in 2 to 3 days. YVONNE MAN DO Oct 09, 2022 14:00
[2022-10-09 14:03] LABS: HEMATOCRIT 37 % (35-52); HEMOGLOBIN 12.6 g/dL (11.5-16.0); MEAN CORPUSCULAR HEMOGLOBIN 31 pg (25-34); MEAN CORPUSCULAR HGB CONC 34 g/dL (32-36); MEAN CORPUSCULAR VOLUME 91 fL (80-99); MEAN PLATELET VOLUME 9.5 fL (9.0-12.2); PLATELET COUNT 135 10^3/uL (130-400); WHITE BLOOD COUNT 5.3 10^3/uL (4.3-11.0)
[2022-10-09 14:04] LABS: BASOPHILS % (AUTO) 1 % (0-10); EOSINOPHILS # (AUTO) 0.2 10^3/uL (0.0-0.3); EOSINOPHILS % (AUTO) 3 % (0-10); LYMPHOCYTES # (AUTO) 1.6 X 10^3 (1.0-4.0); LYMPHOCYTES % (AUTO) 31 % (12-44); MONOCYTES # (AUTO) 0.5 X 10^3 (0.0-1.0); MONOCYTES % (AUTO) 9 % (0-12); NEUTROPHILS % (AUTO) 56 % (42-75)
[2022-10-09 14:35] VITALS: BP 139/76
--- NOTE | 2022-10-09 14:36 | Diagnostic Imaging Report ---
CHEST 1 VIEW AP/PA ONLY Indication: Cough Comparison: 09/16/2022 Findings: No focal airspace disease in the visualized lungs. Partially calcified breast implants account for the hazy opacities over the lung bases. No pleural effusion or pneumothorax. Normal cardiomediastinal silhouette. Impression: 1. No acute cardiopulmonary process by portable radiography. Dictated by: Dictated on workstation # [id number]
[2022-10-09 14:40] LABS: BUN/CREATININE RATIO 26; CARBON DIOXIDE 23 MMOL/L (21-32); CHLORIDE 104 MMOL/L (98-107); CREATININE SERUM 0.87 MG/DL (0.60-1.30); GFR ESTIMATED 68; POTASSIUM 4.2 MMOL/L (3.6-5.0); SODIUM 139 MMOL/L (135-145)
[2022-10-09 14:41] LABS: ALANINE AMINOTRANSFERASE 9 U/L (0-55); ALBUMIN 3.6 GM/DL (3.2-4.5); ALKALINE PHOSPHATASE 67 U/L (40-136); BILIRUBIN,TOTAL 0.3 MG/DL (0.1-1.0); CALCIUM 8.6 MG/DL (8.5-10.1); GLUCOSE 168 MG/DL (70-105); TOTAL PROTEIN 5.8 GM/DL (6.4-8.2)
[2022-10-09 15:04] LABS: BILIRUBIN,URINE NEGATIVE (NEGATIVE); CLARITY,URINE CLOUDY; COLOR,URINE YELLOW; GLUCOSE, URINE (UA) NEGATIVE (NEGATIVE); KETONES,URINE TRACE (NEGATIVE); LEUKOCYTE ESTERASE ,URINE 1+ (NEGATIVE); NITRITE,URINE NEGATIVE (NEGATIVE); PH,URINE 6.5 (5-9); PROTEIN,URINE TRACE (NEGATIVE)
[2022-10-09] MEDS ORDERED: LORazepam 0.5 MG (ATIVAN) TABLET PO STA (15:33)
[2022-10-09 16:08] LABS: BACTERIA,URINE LARGE /HPF; SQUAMOUS EPITHELIAL CELL,UR 25-50 /HPF
[2022-10-10 01:06] LABS: VALPROIC ACID 46.3 UG/ML (50.0-100.0)
[2022-10-12] MEDS ORDERED: CEPH500C PO (13:35)
== END 2022-10-09 15:35 | disposition home or self-care (01) ==
LOC: EDUNIT# 13:38 → ER FS 13:39
DX: R41.82 Altered mental status, unspecified (principal); G30.9 Alzheimer's disease, unspecified; F02.80 Dementia in other diseases classified elsewhere, unspecified severity, without behavioral disturbance, psychotic disturbance, mood disturbance, and anxiety
CPT/HCPCS: 36415; 71045; 80053; 80164; 81000; 84484; 85025; 87077; 87088; 93005